=== PATIENT | female | born 1990 | race Caucasian/White ===

== ENCOUNTER 2017-12-19 10:52 | Emergency (ER) | payer OTHER, MEDICAID ==
[~2017-12-19] VITALS: Ht 172.7 cm; Wt 68.0 kg
[~2017-12-19 10:52] MED LIST: CEPHALEXIN 500500 M3 PO; IBUPROFEN 800800 M1 PO; MEDROLDOSEPACK PO; PRENATAL
[2017-12-19] MEDS ORDERED: NABUMETONE 750750 M1 PO (13:30)
[2017-12-19 13:48] VITALS: BP 107/62
== END 2017-12-19 13:49 | disposition home or self-care (01) ==
LOC: M.ERS 10:52
DX: S93.491A Sprain of other ligament of right ankle, initial encounter (principal); F17.200 Nicotine dependence, unspecified, uncomplicated; W01.0XXA Fall on same level from slipping, tripping and stumbling without subsequent striking against object, initial encounter; Y93.89 Activity, other specified; Y92.096 Garden or yard of other non-institutional residence as the place of occurrence of the external cause; Y99.8 Other external cause status

== ENCOUNTER 2018-05-05 09:31 | Emergency (ER) | payer OTHER, MEDICAID ==
[~2018-05-05] VITALS: Ht 172.7 cm; Wt 75.8 kg
[~2018-05-05 09:31] MED LIST changes: +NABUMETONE 750750 M1 PO
[2018-05-05 10:34] VITALS: BP 107/65
== END 2018-05-05 10:34 | disposition home or self-care (01) ==
LOC: M.ERS 09:31
DX: J02.0 Streptococcal pharyngitis (principal); F17.210 Nicotine dependence, cigarettes, uncomplicated